=== PATIENT | male | born 1960 | race Caucasian/White ===

== ENCOUNTER 2017-12-01 15:21 | Inpatient (IN) | payer SELFPAY ==
[~2017-12-01] VITALS: Ht 170.2 cm; Wt 73.5 kg
[2017-12-01 15:25] VITALS: BP_SYST 138
[2017-12-01] MEDS ORDERED: IPRATROPIUM/ALBUTEROL SULFATE 3 ML AMPUL.NEB INH ONE (16:00)
[2017-12-01 16:31] LABS: HEMATOCRIT 45.5 % (36-54); HEMOGLOBIN 15.3 g/dL (14.0-18.0); MEAN CORPUSCULAR HEMOGLOBIN 31 pg (27-31); MEAN CORPUSCULAR HGB CONC 34 % (32-36); MEAN CORPUSCULAR VOLUME 91 fL (79.0-98.0); PLATELET COUNT (AUTO) 248 K/uL (130-430); RED BLOOD CELL COUNT(AUTO) 5.03 MIL/uL (4.2-6.2); RED CELL DISTRIBUTION WIDTH 12.4 % (9.0-15.0); WHITE BLOOD COUNT (AUTO) 15.1 K/uL (4.8-10.8)
[2017-12-01 16:33] LABS: CALCIUM 9.3 mg/dL (8.4-11.0); CREATININE 0.91 mg/dL (0.55-1.30); POTASSIUM 3.8 mmol/L (3.5-5.1)
[2017-12-01 16:37] LABS: BAND % (MANUAL) 8 % (0-6); LYMPHOCYTES % (MANUAL) 3 % (20-46)
[2017-12-01 16:38] LABS: BASOPHILS % (MANUAL) 0 % (0-2); EOSINOPHILS % (MANUAL) 0 % (0-7); MONOCYTES % (MANUAL) 7 % (0-11); TOTAL BILIRUBIN 0.9 mg/dL (0.0-1.0)
[2017-12-01] MEDS ORDERED: IOHEXOL 350 mgI/mL, 150 ML INFUS..BTL IV ONE (17:41)
[2017-12-01] MEDS ORDERED: AZITHROMYCIN 500 MG in NS 250 ML IV ONE (18:30)
[2017-12-01] MEDS ORDERED: cefTRIAXone 1 GM in D5W 50 ML IV ONE (18:30)
[2017-12-01] MEDS ORDERED: cefTRIAXone 1 GM VIAL ONE (18:46)
[2017-12-01] MEDS ORDERED: AZITHROMYCIN 500 MG/VIAL (ZITHROMAX) IV ONE (18:47)
[2017-12-01] MEDS ORDERED: ACETAMINOPHEN 500 MG TABLET ONE (19:02)
[2017-12-01] MEDS ORDERED: NS 500 ML IV ONE (19:45)
[2017-12-01 20:30] VITALS: BP_SYST 123
[2017-12-01] MEDS ORDERED: ZOLPIDEM TARTRATE 5 MG TABLET PO PRN (20:45)
[2017-12-01] MEDS ORDERED: ACETAMINOPHEN 325 MG TABLET PO PRN ×2 (20:45→23:45)
[2017-12-01] MEDS ORDERED: IPRATROPIUM/ALBUTEROL SULFATE 3 ML AMPUL.NEB INH PRN (20:45)
[2017-12-01] MEDS ORDERED: OSELTAMIVIR PHOSPHATE 6 MG/1 ML, 60 ML SUSP PO SCH (21:00)
[2017-12-01] MEDS: OSELTAMIVIR PHOSPHATE 75 MG CAPSULE PO SCH (21:22)
[2017-12-01] MEDS: LACTOBACILLUS RHAMNOSUS GG 1 CAP CAPSULE PO SCH (21:22)
[2017-12-01] MEDS: ENOXAPARIN SODIUM 40 MG/0.4 ML SYRINGE SUBCUT SCH (21:26)
[2017-12-02] VITALS (7 sets, daily range): BP systolic 123–182
[2017-12-02] MEDS: IPRATROPIUM/ALBUTEROL SULFATE 3 ML AMPUL.NEB INH SCH ×6 (03:11→23:29)
[2017-12-02 06:54] LABS: HEMATOCRIT 40.8 % (36-54); HEMOGLOBIN 14.1 g/dL (14.0-18.0); LYMPHOCYTES # (AUTO) 0.6 K/uL (1.0-5.5); LYMPHOCYTES % (AUTO) 4.8 % (20.5-51.5); MEAN CORPUSCULAR HEMOGLOBIN 31 pg (27-31); MEAN CORPUSCULAR HGB CONC 35 % (32-36); MEAN CORPUSCULAR VOLUME 90 fL (79.0-98.0); MONOCYTES # (AUTO) 1.4 K/uL (0.0-1.0); MONOCYTES % (AUTO) 11.9 % (1.7-9.3); NEUTROPHILS # (AUTO) 10.1 K/uL (1.8-7.7); NEUTROPHILS % (AUTO) 83.3 % (40.0-70.0); PLATELET COUNT (AUTO) 262 K/uL (130-430); RED BLOOD CELL COUNT(AUTO) 4.53 MIL/uL (4.2-6.2); RED CELL DISTRIBUTION WIDTH 12.2 % (9.0-15.0); WHITE BLOOD COUNT (AUTO) 12.1 K/uL (4.8-10.8)
[2017-12-02 07:33] LABS: ALBUMIN 2.5 g/dL (3.4-4.8); CREATININE 1.06 mg/dL (0.55-1.30); FREE T4 (FREE THYROXINE) 0.8 ng/dL (0.6-1.6); POTASSIUM 3.7 mmol/L (3.5-5.1); TOTAL BILIRUBIN 0.5 mg/dL (0.0-1.0)
[2017-12-02] MEDS: OSELTAMIVIR PHOSPHATE 75 MG CAPSULE PO SCH ×2 (08:38→21:44)
[2017-12-02] MEDS: LACTOBACILLUS RHAMNOSUS GG 1 CAP CAPSULE PO SCH ×2 (08:38→21:44)
[2017-12-02] MEDS: ENOXAPARIN SODIUM 40 MG/0.4 ML SYRINGE SUBCUT SCH (21:44)
[2017-12-03 00:50] VITALS: BP_SYST 142
[2017-12-03] MEDS: IPRATROPIUM/ALBUTEROL SULFATE 3 ML AMPUL.NEB INH SCH ×6 (03:00→23:35)
[2017-12-03 06:23] LABS: BASOPHILS % (AUTO) 0.5 % (0.0-2.0); EOSINOPHILS % (AUTO) 0.3 % (0.0-4.0); HEMATOCRIT 41.1 % (36-54); HEMOGLOBIN 13.7 g/dL (14.0-18.0); LYMPHOCYTES # (AUTO) 0.7 K/uL (1.0-5.5); LYMPHOCYTES % (AUTO) 10.3 % (20.5-51.5); MEAN CORPUSCULAR HEMOGLOBIN 30 pg (27-31); MEAN CORPUSCULAR HGB CONC 33 % (32-36); MEAN CORPUSCULAR VOLUME 91 fL (79.0-98.0); MONOCYTES # (AUTO) 1.2 K/uL (0.0-1.0); MONOCYTES % (AUTO) 16.3 % (1.7-9.3); NEUTROPHILS # (AUTO) 5.2 K/uL (1.8-7.7); NEUTROPHILS % (AUTO) 72.6 % (40.0-70.0); PLATELET COUNT (AUTO) 283 K/uL (130-430); RED BLOOD CELL COUNT(AUTO) 4.51 MIL/uL (4.2-6.2); RED CELL DISTRIBUTION WIDTH 12.6 % (9.0-15.0); WHITE BLOOD COUNT (AUTO) 7.1 K/uL (4.8-10.8)
[2017-12-03 06:34] LABS: CALCIUM 9.1 mg/dL (8.4-11.0); CREATININE 0.99 mg/dL (0.55-1.30); POTASSIUM 3.7 mmol/L (3.5-5.1)
[2017-12-03 07:35] VITALS: BP_SYST 124
[2017-12-03] MEDS: LACTOBACILLUS RHAMNOSUS GG 1 CAP CAPSULE PO SCH ×2 (08:07→21:34)
[2017-12-03] MEDS: OSELTAMIVIR PHOSPHATE 75 MG CAPSULE PO SCH ×2 (08:07→21:34)
[2017-12-03 12:00] VITALS: BP_SYST 138
[2017-12-03 16:00] VITALS: BP_SYST 128
[2017-12-03 20:00] VITALS: BP_SYST 130
[2017-12-03] MEDS: ENOXAPARIN SODIUM 40 MG/0.4 ML SYRINGE SUBCUT SCH (21:34)
[2017-12-03 23:16] VITALS: BP_SYST 145
[2017-12-04] MEDS: IPRATROPIUM/ALBUTEROL SULFATE 3 ML AMPUL.NEB INH SCH ×3 (02:58→11:11)
[2017-12-04 08:00] VITALS: BP_SYST 147
[2017-12-04] MEDS: LACTOBACILLUS RHAMNOSUS GG 1 CAP CAPSULE PO SCH (08:34)
[2017-12-04] MEDS: OSELTAMIVIR PHOSPHATE 75 MG CAPSULE PO SCH (08:34)
[2017-12-04] MEDS ORDERED: PREDNISONE 20 MG TABLET PO ONE (11:00)
[2017-12-04 12:32] VITALS: BP_SYST 118
[2017-12-04 13:44] VITALS: BP_SYST 129
[2017-12-04] MEDS ORDERED: PREDNISONE 20 MG TABLET PO SCH (21:00)
== END 2017-12-04 15:01 | disposition home or self-care (01) | DRG 193 ==
LOC: SED 15:21 → SMU 19:40
PROVIDERS: ADMIT Internal Medicine; ATTEND Internal Medicine
DX: J18.9 Pneumonia, unspecified organism (principal); J96.01 Acute respiratory failure with hypoxia; J44.0 Chronic obstructive pulmonary disease with (acute) lower respiratory infection; J44.1 Chronic obstructive pulmonary disease with (acute) exacerbation; I10 Essential (primary) hypertension; F17.200 Nicotine dependence, unspecified, uncomplicated; Z82.49 Family history of ischemic heart disease and other diseases of the circulatory system
CPT/HCPCS: 36415; 36600; 71045; 71275; 80048; 80053; 80061; 82803-TC; 83605; 83880; 84439; 84484; 85007; 85025; 85027; 85379; 86710; 87040-TC; 93005; 93306; 94640; 94760; 96365; 96367; 99285; G9035; J0456; J0696; J1650; J1956; J7040; J7050; J7512; Q9967